=== PATIENT | male | born 1980 | race Hispanic/Latino ===

== ENCOUNTER 2023-10-14 22:38 | Emergency (ER) | payer OTHER ==
[~2023-10-14] VITALS: Ht 180.3 cm; Wt 90.7 kg
[2023-10-14 22:59] LABS: BASOPHILS % 0.3 % (0.0-1.0); EOSINOPHILS # (AUTO) 0.1 (0.0-0.4); EOSINOPHILS % 0.8 % (0.0-6.0); HEMATOCRIT 47.9 % (38.2-49.6); LYMPHOCYTES % 27.2 % (18.0-39.1); MEAN CORPUSCULAR HGB CONC 33.4 g/dL (31-35); MEAN CORPUSCULAR VOLUME 89.7 fL (81-99); MONOCYTES # (AUTO) 0.4 (0.2-0.8); MONOCYTES % 3.3 % (4.4-11.3); NEUTROPHILS # (AUTO) 7.5 (2.1-6.9); NEUTROPHILS % 68.2 % (38.7-80.0); PLATELET COUNT 337 x10e3/uL (140-360); RED BLOOD COUNT 5.34 x10e6/uL (4.3-5.7); RED CELL DISTRIBUTION WIDTH 12.6 % (11.7-14.4); WHITE BLOOD COUNT 11.01 x10e3/uL (4.8-10.8)
[2023-10-14 23:14] LABS: ALANINE AMINOTRANSFERASE 30 IU/L (0-55); ALBUMIN 4.5 g/dL (3.5-5.0); ALBUMIN/GLOBULIN RATIO 1.2 (0.8-2.0); ALKALINE PHOSPHATASE 64 IU/L (40-150); BILIRUBIN,TOTAL 0.6 mg/dL (0.2-1.2); BLOOD UREA NITROGEN 15 mg/dL (7-26); BUN/CREATININE RATIO 18 (6-25); CALCIUM 10.1 mg/dL (8.4-10.2); CARBON DIOXIDE 24 mmol/L (22-29); CHLORIDE 99 mmol/L (98-107); CREATINE KINASE 113 IU/L (30-200); CREATININE, SERUM 0.85 mg/dL (0.72-1.25); EST GLOMERULAR FILTRATION RATE 111 ML/MIN (>=60); GLUCOSE 137 mg/dL (74-118); SODIUM 136 mmol/L (136-145); TOTAL PROTEIN 8.3 g/dL (6.5-8.1)
[2023-10-14 23:24] LABS: TROPONIN I < 0.001 ng/mL (0-0.300)
[2023-10-15] VITALS: BP 132/93; PULSE 85; RESP 15; TEMP 98.1; O2SAT 100
== END 2023-10-15 00:08 | disposition home or self-care (01) ==
LOC: ER 22:41
DX: R00.2 Palpitations (principal); U07.1 COVID-19; I10 Essential (primary) hypertension; E78.5 Hyperlipidemia, unspecified
CPT/HCPCS: 36415; 71045; 80053; 82550; 83690; 83880; 84484; 85025; 93005; 99284; U0002